=== PATIENT | female | born 1990 | race Caucasian/White ===

== ENCOUNTER 2017-10-14 09:22 | Emergency (ER) | payer MEDICAID ==
[2015-01-19 06:30] VITALS: BMI 19.7
[~2017-10-14 09:22] MED LIST: KLONOPIN1 MG PO; PERCOCET 10/3251 TA1 PO
== END 2017-10-14 11:30 | disposition home or self-care (01) ==
LOC: D.ER 09:22
DX: M25.522 Pain in left elbow (principal); Z87.81 Personal history of (healed) traumatic fracture

== ENCOUNTER 2019-11-23 07:25 | Outpatient (CLI) | payer MEDICAID ==
[2015-01-19 06:30] VITALS: BMI 19.7
[2019-11-23 08:34] LABS: BASOPHILS 0.2 % (0-2); EOSINOPHILS 0.4 % (0-7); HEMATOCRIT 33.6 % (36.0-48.0); HEMOGLOBIN 10.9 g/dL (12-16); IMMATURE GRANULOCYTES 0.5 % (0-5); LYMPHOCYTES 8.3 % (15-50); MCH 29.1 pg (26.0-34.0); MCHC 32.4 g/dL (31.0-37.0); MCV 89.8 fL (80.0-100.0); MEAN PLATELET VOLUME 9.9 fL (7.4-10.4); NEUTROPHILS 85.6 % (40-80); PLATELET COUNT 289 10x3/uL (130-400); RBC 3.74 10x6/uL (4.00-5.40); RDW 13.4 % (11.5-14.5); WBC 18.2 10x3/uL (4.8-10.8)
[2019-11-23 08:45] LABS: CALC OSMOLALITY 271 mosm/kg (275-300); CALCIUM 8.5 mg/dL (8.5-10.1); CARBON DIOXIDE 23.9 mmol/L (21.0-32.0); CHLORIDE - SERUM 104 mmol/L (98-107); CREATININE - SERUM 0.7 mg/dL (0.6-1.3); GLUCOSE 90 mg/dL (74-106); POTASSIUM - SERUM 4.4 mmol/L (3.5-5.1); SODIUM 136 mmol/L (136-145); UREA NITROGEN 12 mg/dL (7-18); eGFR NON AFRICAN AMERICAN > 90 mL/min (90-120)
[2019-11-23 08:53] LABS: ALBUMIN 2.9 g/dL (3.4-5.0); ALKALINE PHOSPHATASE 68 U/L (30-120); ALT (SGPT) 13 U/L (10-68); AMYLASE - SERUM 86 U/L (25-115); BILIRUBIN - TOTAL 0.21 mg/dL (0.2-1.3); LIPASE 107 U/L (73-393); PROTEIN - SERUM 6.5 g/dL (6.4-8.2)
[2019-11-23 10:04] LABS: BACTERIA MODERATE /hpf (NEGATIVE); BILIRUBIN NEGATIVE (NEGATIVE); GLUCOSE 50 mg/dL (NEGATIVE); KETONE NEGATIVE (NEGATIVE); NITRITE NEGATIVE (NEGATIVE); RED CELLS - URINE RARE /hpf (0-5); SPECIFIC GRAVITY 1.015 (1.005-1.020); UROBILINOGEN NORMAL (NORMAL); WHITE CELLS - URINE OCC /hpf (NEGATIVE)
== END 2019-11-23 11:15 | disposition home or self-care (01) ==
LOC: D.LDO 07:25
PROVIDERS: ATTEND Obstetrics & Gynecology
DX: O26.899 Other specified pregnancy related conditions, unspecified trimester (principal); Z3A.00 Weeks of gestation of pregnancy not specified

== ENCOUNTER → 2020-01-22 09:45 | Outpatient (CLI) | payer MEDICAID ==
[2015-01-19 06:30] VITALS: BMI 19.7
== END | disposition home or self-care (01) ==
LOC: D.LDO 09:45
PROVIDERS: ATTEND Student in an Organized Health Care Education/Training Program
DX: O36.8130 Decreased fetal movements, third trimester, not applicable or unspecified (principal); Z3A.36 36 weeks gestation of pregnancy

== ENCOUNTER 2020-02-17 20:42 | Inpatient (IN) | payer MEDICAID ==
[~2020-02-17] VITALS: Ht 152.4 cm; Wt 67.1 kg
[2020-02-17 21:22] VITALS: BP 117/79; Ht 152.4 cm; Wt 67.1 kg
[2020-02-17 21:40] LABS: HEMATOCRIT 39.5 % (36.0-48.0); HEMOGLOBIN 13.2 g/dL (12-16); MCH 29.8 pg (26.0-34.0); MCHC 33.4 g/dL (31.0-37.0); MCV 89.2 fL (80.0-100.0); MEAN PLATELET VOLUME 12.8 fL (7.4-10.4); RBC 4.43 10x6/uL (4.00-5.40); RDW 13.4 % (11.5-14.5); WBC 13.5 10x3/uL (4.8-10.8)
[2020-02-17 23:33] LABS: BILIRUBIN NEGATIVE (NEGATIVE); GLUCOSE NEGATIVE (NEGATIVE); KETONE NEGATIVE (NEGATIVE); NITRITE NEGATIVE (NEGATIVE); SPECIFIC GRAVITY 1.005 (1.005-1.020); UROBILINOGEN NORMAL (NORMAL)
[2020-02-17 23:35] LABS: BACTERIA FEW /hpf (NEGATIVE); EPITHELIAL CELLS 0-5 /hpf (0-5); RED CELLS - URINE 0-5 /hpf (0-5); WHITE CELLS - URINE 0-5 /hpf (NEGATIVE)
--- NOTE | 2020-02-18 19:23 | NUR ---
REPORT GIVEN TO VONDA BONILLA RN AT THIS TIME.
--- NOTE | 2020-02-18 19:30 | NUR ---
REPORT GIVEN BY VONDA MERCEDES RN
--- NOTE | 2020-02-18 20:30 | NUR ---
AMOS SAMANIEGO DID ASSESSMENT ON PT AND CHARTED IT IN [facility].
--- NOTE | 2020-02-18 22:53 | NUR ---
PT C/P CRAMPING PAIN. MOTRIN GIVEN PO PER DR. SHEPHERD
--- NOTE | 2020-02-19 | NUR ---
PT CRAMPING RATING PAIN A 7 WHICH WAS REPORTED BY THE NURSERY NURSE, AMOS BUTCHER. I WENT INTO THE ROOM TO CHECK ON HER AND SHE WAS WALKING TO THE BEDROOM. SHE WAS NOT IN PAIN AT THAT TIME. SHE TELLS ME THAT ITS JUST INTERMITTENT PAIN. DISCUSSED WITH DR. JOHNS.
--- NOTE | 2020-02-19 00:38 | NUR ---
PT TOOK A BENADRYL 25 MG TO HELP WITH SLEEP.
--- NOTE | 2020-02-19 02:00 | NUR ---
PT IS RESTING QUIETLY WITH HER EYES CLOSED. RERSPIRATIONS EVEN AND UNLABORED.
--- NOTE | 2020-02-19 04:00 | NUR ---
PT IS RESTING QUIETLY WITH HER EYES CLOSED.
[2020-02-19 06:10] LABS: RAPID PLASMA REAGIN Non Reactive (Non Reactive)
[2020-02-19 06:12] LABS: BASOPHILS 0.2 % (0-2); EOSINOPHILS 1.3 % (0-7); HEMATOCRIT 32.7 % (36.0-48.0); HEMOGLOBIN 10.6 g/dL (12-16); IMMATURE GRANULOCYTES 0.5 % (0-5); LYMPHOCYTES 20.8 % (15-50); MCH 29.1 pg (26.0-34.0); MCHC 32.4 g/dL (31.0-37.0); MCV 89.8 fL (80.0-100.0); MEAN PLATELET VOLUME 12.5 fL (7.4-10.4); NEUTROPHILS 67.2 % (40-80); RBC 3.64 10x6/uL (4.00-5.40); RDW 13.6 % (11.5-14.5); WBC 12.8 10x3/uL (4.8-10.8)
--- NOTE | 2020-02-19 06:12 | NUR ---
PT C/O CRAMPIMG MOTRIN 600 MG GIVEN PO
[2020-02-19 06:16] LABS: PLATELET COUNT 179 10x3/uL (130-400)
[2020-02-19 07:54] VITALS: BP 125/84
--- NOTE | 2020-02-19 07:54 | NUR ---
THIS RN TO ROOM FOR SHIFT ASSESSMENT. PT SITTING UP IN BED, AAOx3, RATES PAIN 3-4 AFTER MOTRIN ADMIN THIS MORNING. SHIFT ASSESSMENT COMPLETED, VSS, SEE FLOWSHEET FOR DOC. FF, ML, U/U. SMALL RUBRA LOCHIA, NO CLOTS. S/S TO REPORT REGARDING LOCHIA/CLOTS DISCUSSED WITH PT WELL IMPORTANCE OF EMPTYING BLADDER REGULARLY. PT STATES SHE JUST GOT UP TO BR AND CHANGED PAD, SO THERE ISN'T MUCH ON IT NOW, BUT SHE FEELS LIKE MAYBE IT WAS A LITTLE HEAVY LAST NIGHT. PT INSTRUCTED TO LEAVE PERIPAD IN PLACE AND THIS RN WILL REAVALUATE LOCHIA IN 1 HOUR. UNDERSTANDING VERBALIZED. PT DENIES NEEDS AT THIS TIME. SRUx2, CL IN REACH. SIG OTHER AT BEDSIDE. WILL CONT TO MONITOR.
--- NOTE | 2020-02-19 09:00 | NUR ---
THIS RN TO ROOM FOR PAD CHECK. 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 PT TO BED, SUPINE, FF, ML, U/1. SMALL RUBRA LOCHIA, NO CLOTS. PT REASSURED AND S/S TO REPORT REINFORCED. UNDERSTANDING VERBALIZED. SRUx2, CL IN REACH. WILL CONT TO MONITOR.
--- NOTE | 2020-02-19 10:48 | NUR ---
THIS RN TO ROOM FOR PT CHECK. PT UP TO BR, AMBULATES OUT TO ROOM. PT DENIES HEAVY BLEEDING OR ANY NEEDS. PT SMILING, TALKING WITH SIG OTHER. WILL CONT TO MONITOR.
--- NOTE | 2020-02-19 12:30 | NUR ---
PT SIG OTHER TO DESK STATING PT DIDN'T LIKE LUNCH. THIS RN TO ROOM, PT STATES SHE WANTS TO ORDER CHEESBURGER TRAY FOR HER AND SIG OTHER. DIETARY ORDER PLACED AND STAFF NOTIFIED. PT DENIES FURTHER NEEDS AT THIS TIME. SRUx2, CL IN REACH.
[2020-02-19 13:49] VITALS: BP 110/80
--- NOTE | 2020-02-19 13:55 | NUR ---
THIS RN TO ROOM FOR PT CHECK. PT C/O PAIN RATED 3-4/10, REQUESTING PAIN MEDICATION. MOTRIN ADMIN ORDERED, SEE EMAR FOR DOC. VSS, SEE FLOWSHEET FOR DOC. LEFT WRIST PIV REMOVED WITHOUT INCIDENT PER PT REQUEST, VSS, AND STABLE LABS. PRESSURE HELD AND BANDAID APPLIED. PT QUESTIONS WHEN SHE CAN GO HOME. 48 HOUR STAY REQUIREMENT FOR DISCUSSED PER POSITIVE GBS STATUS IN LABOR. DISCUSSED POSSIBILITY OF ROOMING IN WITH PT IF APPROVED BY DR JOHNS. PT STATES WILL THINK ABOUT IT AND LET US KNOW. SRUx2, CL IN REACH. WILL CONT TO MONITOR.
--- NOTE | 2020-02-19 16:35 | NUR ---
THIS RN TO ROOM FOR PT CHECK. PT LYING IN BED ON LEFT SIDE, AAOx3, HOLDING NEXT TO HER. PT DENIES ANY NEEDS, REPORTS PAIN IS BETTER AFTER MOTRIN ADMIN. SIG OTHER AWAKE ON BEDSIDE COUCH. SRUx2, CL IN REACH. WILL CONT TO MONITOR.
--- NOTE | 2020-02-19 17:33 | NUR ---
THIS RN TO ROOM FOR PT CHECK, PT SITTING UP IN BED TALKING WITH SIG OTHER. SIG OTHER STATES GUEST TRAY STILL HAS NOT BEEN DELIVERED. FANS STAFF ON UNIT, NOTIFIED TRAY NOT DELIVERED, STATES WILL CHECK INTO IT. PT DENIES FURTHER NEEDS. SRUx2, CL IN REACH.
--- NOTE | 2020-02-19 18:28 | NUR ---
THIS RN TO ROOM FOR PT CHECK. PT SITTING UP IN BED, AAOx3, LIGHTS DIM PER PT. PT DENIES PAIN OR ANY NEEDS. MED TIMES UPDATED ON BOARD FOR NEXT AVAIALABLE MOTRIN. SRUx2, CL IN REACH. IN [place], SIG OTHER ON BEDSIDE COUCH.
[2020-02-19 19:25] VITALS: BP 131/86
--- NOTE | 2020-02-19 19:25 | NUR ---
PT REC'D IN BED AT THIS TIME. FUNDUS FIRM AND MIDLINE WITH SMALL LOCHIA NOTE. PT STATES THAT PAIN IS A 2 AT THIS TIME. SIDERAIL UP FOR SAFETYL. CALL LIGHT IN PT REACH. Jerry LYON RN
--- NOTE | 2020-02-19 20:00 | NUR ---
PT TRANSFERRED TO [facility] UNIT. NO DISTRESS NOTED. Jerry LYON RN
--- NOTE | 2020-02-19 21:01 | NUR ---
FOB AT STORAGE WORKER, REPORTS PT WOULD LIKE HER MOTRIN, THIS RN TO ROOM, ADM MOTRIN PER MD ORDERS, SEE EMAR, PT DENIES FURTHER NEEDS
--- NOTE | 2020-02-19 22:00 | NUR ---
PT HOLDING INFANT, DENIES NEEDS OR PAIN AT THIS TIME, FOB AT BEDSIDE
--- NOTE | 2020-02-20 00:38 | NUR ---
PT HOLDING INFANT, DENIES NEEDS OR PAIN AT THIS TIME, FOB ASLEEP AT BEDSIDE
--- NOTE | 2020-02-20 02:23 | NUR ---
PT RESTING WITH EYES CLOSED, RESP QUIET, NO DISTRESS NOTED, LEFT UNDISTURBED AT THIS TIME, FOB ASLEEP AT BEDSIDE
--- NOTE | 2020-02-20 04:16 | NUR ---
PT RESTING WITH EYES CLOSED, RESP QUIET, NO DISTRESS NOTED, LEFT UNDISTURBED AT THIS TIME, FOB ASLEEP AT BEDSIDE
[2020-02-20 05:47] LABS: BASOPHILS 0.4 % (0-2); EOSINOPHILS 3.9 % (0-7); HEMATOCRIT 34.4 % (36.0-48.0); IMMATURE GRANULOCYTES 0.5 % (0-5); LYMPHOCYTES 35.5 % (15-50); MCH 29.1 pg (26.0-34.0); MEAN PLATELET VOLUME 12.7 fL (7.4-10.4); MONOCYTES 9.8 % (2-11); NEUTROPHILS 49.9 % (40-80); PLATELET COUNT 185 10x3/uL (130-400); RBC 3.78 10x6/uL (4.00-5.40); RDW 13.9 % (11.5-14.5)
--- NOTE | 2020-02-20 05:47 | NUR ---
PT RESTING WITH EYES CLOSED, AROUSES TO SOFT VERBAL STIMULATION, TO ROOM VIA OPEN CRIB CART PER THIS RN, BANDS CHECKED, INFANT TO FOB AT THIS TIME, ADM MOTRIN PER MD ORDERS, SEE EMAR, PT DENIES FURTHER NEEDS
[2020-02-20 06:04] LABS: WBC 7.7 10x3/uL (4.8-10.8)
--- NOTE | 2020-02-20 06:42 | NUR ---
PT UP IN ROOM, DENIES NEEDS OR PAIN AT THIS TIME, IN OPEN CRIB CART AND FOB AT BEDSIDE
[2020-02-20 07:57] VITALS: BP 114/84
--- NOTE | 2020-02-20 08:06 | NUR ---
ASSESSMENT DONE. SITTING UP IN BED. DENIES PAIN. SMALL LOCHIA NOTED ON PAD. FUNDUS UU/FIRM. PT STATES SHE HAS CHANGED PAD 4 TIMES THIS MORNING. STATES HAS HAD SOME SMALL CLOTS. WILL MONITOR. DENIES NEEDS.
--- NOTE | 2020-02-20 10:30 | NUR ---
t-dap vaccine info sheet given to ptto read- pt refuses vaccine.
--- NOTE | 2020-02-20 12:06 | NUR ---
PT'S SIG OTHER TO DESK, STATES "SHE WOULD LIKE HER IBUPROFEN". TO ROOM, SEE EMAR FOR ALL MEDS ADM BY THIS RN. MED ADM SCHEDULE EXPLAINED TO PT. PT DENIES ALL OTHER QUESTIONS AT THIS TIME. SRUP X2, CALL LIGHT AND PHONE WITHIN REACH.
[2020-02-20 13:08] VITALS: BP 116/78
--- NOTE | 2020-02-20 13:15 | NUR ---
STATES CRAMPING IS 0-1 ON SCALE OF 0-10 POST MOTRIN. REQUEST COLA- COLA GIVEN DENIES OTHER NEEDS. VS DONE.
--- NOTE | 2020-02-20 16:42 | NUR ---
DISCHARGE INST VERBAL AND WRITTEN GIVEN FOR PT TO READ. SEE ALSO SIGNED INST SHEETS. NO SCRIPTS TO BE GIVEN. APPOINTMENT TIME FOR NEXT OB VISIT PROVIDED. PT HEALTH SUMMARY PROVIDED.
--- NOTE | 2020-02-20 17:29 | NUR ---
PT SQUATED DOWN IN FLOOR. CO CRAMPING AND STATES SHE IS MORE COMFORTABLE IN THIS POSITION. RATES PAIN 4-5 WITH CRAMPING. PT STATES SHE WILL TAKE MOTRIN WHEN AVAILABLE. DENIES WANTING THIS NURSE TO CALL MD FOR STRONGER MEDICATION.
--- NOTE | 2020-02-20 17:33 | NUR ---
PT STANDING NOW AND STATES CRAMPING IS A LITTLE BETTER. PT ASKING WHEN WILL BE DISCHARGED. EXPLAINED THAT NURSERY NURSE WILL DISCHARGE INFANT MILENA.
--- NOTE | 2020-02-20 18:11 | NUR ---
AMBULATING ABOUT IN ROOM. SCANT LOCHIA NOTED ON PAD WHEN OBSERVED. DENIES CRAMPING AT THIS TIME.
--- NOTE | 2020-02-20 18:55 | NUR ---
NURSERY FINISHED WITH DISCHARGE. PT STATES SHE IS READY TO LEAVE. DISCHARGED HOME WITH INFANT AND SIG. OTHER. PT REQUEST TO AMBULATE OFF UNIT- ACCOMPANIED PT TO AUTO. STABLE
== END 2020-02-20 18:55 | disposition home or self-care (01) | DRG 807 ==
LOC: D.LD 20:42 → D.WS 02-19 19:45
PROVIDERS: ADMIT Student in an Organized Health Care Education/Training Program; ATTEND Student in an Organized Health Care Education/Training Program
PROC: 10E0XZZ Delivery of Products of Conception, External Approach (ICD-10-PCS; principal; 2020-02-18)
PROC: 3E033VJ Introduction of Other Hormone into Peripheral Vein, Percutaneous Approach (ICD-10-PCS; 2020-02-18)
PROC: 10907ZC Drainage of Amniotic Fluid, Therapeutic from Products of Conception, Via Natural or Artificial Opening (ICD-10-PCS; 2020-02-18)
DX: O99.824 Streptococcus B carrier state complicating childbirth (principal); Z37.0 Single live birth; Z3A.40 40 weeks gestation of pregnancy

== ENCOUNTER 2020-02-22 16:35 | Emergency (ER) | payer BC ==
[~2020-02-22] VITALS: Ht 160 cm; Wt 65.9 kg
[2020-02-22 16:44] VITALS: Ht 160 cm; Wt 65.9 kg
[2020-02-22 17:49] LABS: BASOPHILS 0.2 % (0-2); EOSINOPHILS 2.9 % (0-7); HEMATOCRIT 38.6 % (36.0-48.0); HEMOGLOBIN 12.5 g/dL (12-16); IMMATURE GRANULOCYTES 0.5 % (0-5); LYMPHOCYTES 19.9 % (15-50); MCH 29.3 pg (26.0-34.0); MCHC 32.4 g/dL (31.0-37.0); MCV 90.4 fL (80.0-100.0); MEAN PLATELET VOLUME 11.7 fL (7.4-10.4); MONOCYTES 6.6 % (2-11); NEUTROPHILS 69.9 % (40-80); RBC 4.27 10x6/uL (4.00-5.40); RDW 13.5 % (11.5-14.5); WBC 11.8 10x3/uL (4.8-10.8)
[2020-02-22 17:51] LABS: PLATELET COUNT 270 10x3/uL (130-400)
[2020-02-22 17:54] LABS: APTT 33.3 SECONDS (22.8-39.4); INR 0.85 (0.85-1.17); PROTIME 11.6 SECONDS (11.6-15.0)
[2020-02-22 17:55] LABS: CALC OSMOLALITY 281 mosm/kg (275-300); CALCIUM 9.3 mg/dL (8.5-10.1); CARBON DIOXIDE 29.4 mmol/L (21.0-32.0); CHLORIDE - SERUM 109 mmol/L (98-107); CREATININE - SERUM 0.8 mg/dL (0.6-1.3); D-DIMER-QUANTITATIVE 1.36 ug/mLFEU (0.20-0.54); GLUCOSE 90 mg/dL (74-106); POTASSIUM - SERUM 3.9 mmol/L (3.5-5.1); SODIUM 142 mmol/L (136-145); UREA NITROGEN 11 mg/dL (7-18); eGFR NON AFRICAN AMERICAN 90 mL/min (90-120)
[2020-02-22 18:13] LABS: ALBUMIN 3.1 g/dL (3.4-5.0); ALKALINE PHOSPHATASE 136 U/L (30-120); ALT (SGPT) 15 U/L (10-68); CKMB 1.1 U/L (0.0-3.6); CREATINE KINASE 51 UL (21-215); MAGNESIUM - SERUM 1.8 mg/dL (1.8-2.4); PROTEIN - SERUM 6.8 g/dL (6.4-8.2)
[2020-02-22 18:14] LABS: TROPONIN-I < 0.017 ng/mL (0.000-0.060)
[2020-02-22 20:19] LABS: BILIRUBIN NEGATIVE (NEGATIVE); GLUCOSE NEGATIVE (NEGATIVE); KETONE NEGATIVE (NEGATIVE); NITRITE NEGATIVE (NEGATIVE); RED CELLS - URINE 0-5 /hpf (0-5); UROBILINOGEN NORMAL (NORMAL); WHITE CELLS - URINE OCC /hpf (NEGATIVE)
[2020-02-22 22:40] VITALS: BP 128/79
== END 2020-02-22 22:40 | disposition home or self-care (01) ==
LOC: D.ER 16:35
PROVIDERS: Family Medicine
DX: R07.9 Chest pain, unspecified (principal); R06.00 Dyspnea, unspecified; R51 Headache; R60.9 Edema, unspecified; R79.89 Other specified abnormal findings of blood chemistry

== ENCOUNTER 2020-02-22 23:50 | Outpatient (CLI) | payer BC ==
[~2020-02-22] VITALS: Ht 160 cm; Wt 64.9 kg
[2020-02-23] VITALS (21 sets, daily range): BP systolic 110–152; BP diastolic 79–101; Ht 160 cm; Wt 64.9 kg
--- NOTE | 2020-02-23 01:00 | NUR ---
see notes under 'recovery" centricity [facility] pt resting quietly w/ mgso4 infusing via pump at 50 ml via r ac 20 guage, fan given for comfort, tripp to drainage, ns infusing at 50 ml/hr.. no needs voiced
--- NOTE | 2020-02-23 02:25 | NUR ---
to room, feels relief from headache, dtr's remain brisk, tripp continues to drainage, clear yellow urine
--- NOTE | 2020-02-23 04:52 | NUR ---
resting quietly, arouses easily to name called, w/o c/o pain or discomfort. no needs voiced at this tie
--- NOTE | 2020-02-23 05:55 | NUR ---
to bedside, pt c/o headache, continues to deny epigastric pain or visual disturbances, dtr's +2. marian. informed pt would call dr jacobson to make aware of pt complaint
--- NOTE | 2020-02-23 06:05 | NUR ---
call to dr jacobson, report given of blood pressures and pt continues to c/o head ache,, felt relief after fioricet but now getting worse again. orders rec'd to consult anesthesia to r/o spinal headache.
--- NOTE | 2020-02-23 06:15 | NUR ---
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
--- NOTE | 2020-02-23 07:23 | NUR ---
THIS RN TO ROOM FOR SHIFT ASSESSMENT. PT LYING IN BED TO RIGHT TILT, RATES PAIN WITH HEADACHE NOW 3/10, STATES FIORCET HELPED. PT DENIES THAT HEADACHE IS POSITIONAL, STATES "IT JUST COMES AND GOES." SHIFT ASSESSMENT COMPLETED, BP CUFF SIZE ADJUSTED TO PROPER LENGTH FOR PARAMETERS AND ARTERIAL ALIGNMENT, REASSESSED. DIASTOLIC BP NOTED TO BE SLIGHTLY ELEVATED. RIGHT LE NOTED TO HAVE 1+ TO 2+ PITTING EDEMA, LEFT LE NON-PITTING, GENERALIZED EDEMA. POSSIBLY DEPENDENT IN RLE DUE TO RIGHT SIDED POSITIONING. MAG SULFATE AND NS INFUSING ORDERED AT 50ML/H TO RIGHT PIV IN AC. BILATERAL BREASTS NOTED TO BE TIGHT AND ENGORGED, NO REDNESS NOTED, PT AFEBRILE. PT STATES SHE DOES NOT WANT TO PUMP OR BREASTFEED HER , STATES SHE WANTS MILK TO GO AWAY. COLD PACKS PROVIDED TO PT WITH ONE PER BREAST. LEFT BREAST NOTED TO BE MORE FIRM AND LEAKING BREASTMILK. BREASTPADS PLACED IN PT BRA BILAT. TRAN CATH DRAINING CLEAR YELLOW URINE TO BEDSIDE DRAINAGE, 350ML EMPTIED FROM UROMETER. PT REPORTS VERY LITTLE LOCHIA FLOW AT THIS POINT, DENIES NEEDING PAD CHANGED. FF, ML, U/3. PT DENIES NEEDS AT THIS TIME. POC DISCUSSED. MEDS AND POC WRITTEN ON WHITE BOARD. SRUx2, CL IN REACH SIG OTHER ON BEDSIDE COUCH.
[2020-02-23 07:51] LABS: HEMATOCRIT 44.3 % (36.0-48.0); HEMOGLOBIN 14.8 g/dL (12-16); MCH 29.7 pg (26.0-34.0); MCHC 33.4 g/dL (31.0-37.0); MEAN PLATELET VOLUME 11.2 fL (7.4-10.4); RBC 4.98 10x6/uL (4.00-5.40); RDW 13.5 % (11.5-14.5); WBC 11.7 10x3/uL (4.8-10.8)
--- NOTE | 2020-02-23 08:00 | NUR ---
SEE MAG FLOWSHEET FOR ALL HOURLY CHECKS
--- NOTE | 2020-02-23 08:30 | NUR ---
DR JOHNS PHONED WITH MAG LEVEL OF 7.0 AND PT REPORTS OF HEADACHE BEING BETTER AFTER FIORCET, RATES PAIN 3/10. RLE EDEMA DISCUSSED. REPORT ALSO GIVEN ON PT BREAST ENGORGEMENT AND THAT SHE DOES NOT WANT MILK TO COME IN. ORDER RECEIVED TO STOP MAG SULFATE NOW AND RECHECK MAG LEVEL AT 4 HOURS AFTER BEING TURNED OFF. COLD PACKS AND PAM BANDAGE WRAP ORDERED FOR BREAST ENGORGEMENT. WILL UPDATE PT ON POC.
--- NOTE | 2020-02-23 08:40 | NUR ---
MAGNESIUM SULFATE OFF
--- NOTE | 2020-02-23 10:30 | NUR ---
DR JOHNS TO ROOM FOR ROUNDING, NOTIFIES THIS RN SHE WILL ORDER FLEXERIL FOR NECK PAIN.
--- NOTE | 2020-02-23 11:50 | NUR ---
FLEXERIL 5MG PO ADMIN ORDERED, SEE EMAR FOR DOC. PT STATES HEADACHE IS GETTING A LITTLE WORSE, ASKS IF FLEXERIL MIGHT HELP WITH HEADACHE WELL NECK PAIN. POSSIBLE TENSION HEADACHE DISCUSSED, PT AGREES WILL WAIT AND SEE IF FLEXERIL HELPS WITH NECK AND HEAD.
--- NOTE | 2020-02-23 12:30 | NUR ---
LAB STAFF NOTIFIED OF NEED FOR MAG LEVEL TO BE DRAWN AT APPROX 1240 TO BE 4 HOURS POST MAG SHUT-OFF. STATES WILL SEND SOMEONE DOWN.
--- NOTE | 2020-02-23 14:15 | NUR ---
DR JOHNS PHONED WITH REPORT ON MAG LEVEL OF 4.3, PT BP'S IMPROVED, BUT PT C/O WORSENING HEADACHE EVEN AFTER FLEXERIL FOR NECK PAIN. ORDER RECEIVED TO RESTART MAGNESIUM SULFATE AT 1.5G/HR, PT MAY HAVE ONE TIME REPEAT DOSE OF FIORCET, AND MAY HAVE CLEAR LIQUID DIET. WILL PROCEED ORDERED.
--- NOTE | 2020-02-23 14:45 | NUR ---
PT UPDATED ON POC. MAG SULFATE RESTARTED WITH RATE CHANGE TO 37.5ML/H TO MAINTAIN 1.5G/HR DOSE ORDERED. FIORCET ADMIN ORDERED FOR SOUZA AT 1440. SPRITE AND POPSICLE GIVEN PER REQUEST FOR CLEAR LIQUID DIET. PT VERBALIZES UNDERSTANDING OF POC, QUESTIONS REGARDING WHEN PAM WRAP WILL BE APPLIED FOR BREAST ENGORGMENT. WILL ATTEMPT TO LOCATE WRAP AGAIN FROM PC TECH.
--- NOTE | 2020-02-23 15:00 | NUR ---
PAM BANDAGE WRAP APPLIED AROUND PT BREASTS FOR ENGORGMENT ORDERED. PT DENIES FURTHER NEEDS AT THIS TIME. SIG OTHER AT BEDSIDE. LIGHTS IN ROOM REMAIN DIMMED FOR LOW STIMULUS. SRUx2, CL IN REACH. WILL CONT TO MONITOR.
--- NOTE | 2020-02-23 16:00 | NUR ---
THIS RN TO ROOM FOR HOURLY CHECKS. PT RESTING IN BED, SUPINE, EYES CLOSED AND RESP EVEN AND UNLABORED. PT AWAKENS IV PUMP ALARMS. PT QUESTIONED ON HEADACHE AND NECK PAIN TO REEVALUATE MEDS. STATES HER HEAD STILL HURTS A LITTLE, RATES PAIN 4/10, AND STATES HER NECK STILL HURTS AND FEELS TENSE. THIS RN DISCUSSES MED TIMES ORDERED WITH PT, WARM PACK OFFERED FOR NECK. PT STATES SHE WILL WAIT AND SEE IF IT GOES AWAY.
--- NOTE | 2020-02-23 16:45 | NUR ---
PT SIG OTHER TO DESK STATING PT WANTS ANOTHER FLEXERIL TO HELP WITH HER NECK. WILL NOTIFY
--- NOTE | 2020-02-23 17:15 | NUR ---
DR JOHNS PHONED WITH PT C/O HEADACHE PERISTENT, RATED 4/10, AND THAT PT IS REQUESTING ANOTHER FLEXERIL NOW FOR NECK PAIN. ORDER RECIEVED TO ADMIN ANOTHER 5MG DOSE NOW AND RE-EVALUATE AFTER REPEAT DOSE.
--- NOTE | 2020-02-23 17:33 | NUR ---
PT ADMIN ANOTHER 5MG FLEXERIL ORDERED ONE TIME PO, SEE EMAR FOR DOC. PT AGREEABLE TO TRYING HEAT PACK FOR NECK. HEEL WARMER HEAT PACK FROM NURSERY PROVIDED TO PT AND PLACED TO NECK. PT DENIES FURTHER NEEDS, REPORTS WHAT SHE HAD FROM CLEAR LIQUID DINNER TRAY. SRUx2, CL IN REACH. SIG OTHER AT BEDSIDE.
--- NOTE | 2020-02-23 18:53 | NUR ---
REPORT TO AMOS FALCON.
[2020-02-23 19:24] LABS: HEMATOCRIT 42.9 % (36.0-48.0); HEMOGLOBIN 14.1 g/dL (12-16); MCH 29.5 pg (26.0-34.0); MCHC 32.9 g/dL (31.0-37.0); MCV 89.7 fL (80.0-100.0); MEAN PLATELET VOLUME 11.2 fL (7.4-10.4); RBC 4.78 10x6/uL (4.00-5.40); RDW 13.6 % (11.5-14.5); WBC 11.2 10x3/uL (4.8-10.8)
--- NOTE | 2020-02-23 19:41 | NUR ---
CALL TO DR JOHNS REPORT GIVEN REGARDING MAGESIUM LEVEL, ORDERS REC'D TO CONTINUE AT PRESENT RATE, ALSO REC'D ORDERS TO GIVE 5 MG FLEXIRIL NOW (OTHER HALF OF 1O MG GIVEN)
--- NOTE | 2020-02-23 22:10 | NUR ---
resting quietly in bed, supine position, arouses to name called, no needs voiced
--- NOTE | 2020-02-24 00:10 | NUR ---
at bedside, pt resting quietly, respirations even and unlabored w/o signs of distress. no needs voiced at this time
--- NOTE | 2020-02-24 02:16 | NUR ---
call from lab w/ mgso4 level of 6.6. nursing message reads to call md for levels above 7. no other range given in poc per dr jacobson. so will continue to monitor
--- NOTE | 2020-02-24 04:05 | NUR ---
at bedside, pt aroused to touch, vss, states is feeling relief sayig "this is the first time in days I haven't had a headache" no needs voiced at this time
[2020-02-24 07:22] VITALS: BP 110/80
--- NOTE | 2020-02-24 07:22 | NUR ---
RECEIVED PT IN SEMI-ROBLES'S POSITION IN BED. AWAKE. AAO X 3. VSS. HRRR WITHOUT AUDIBLE MURMUR. BBS CLEAR. BS X 4. ABDOMEN SOFT/NON-DISTENDED. PT DENIES VAGINAL DISCHARGE. DENIES H/A, VIS PROBLEMS, EPIG OR RUQ PAIN. 1+/1+ NON-PITTING EDEMA NOTED TO BLE. PIV SITE CLEAR TO RIGHT FOREARM. MAGNESIUM SULFATE DC'D. PT INSTRUCTED ON ORDERS RECEIVED. PT AND SO VERBALIZE UNDERSTANDING. TRAN TO GRAVITY DRAINING DARK, YELLOW URINE. PT DENIES PAIN. SR UP X 2. CALL LIGHT IN REACH. PT DENIES NEEDS.
--- NOTE | 2020-02-24 09:17 | NUR ---
PIV CONVERTED TO SALINE LOCK. FLUSHES EASILY WITH 10 ML NS. SITE CLEAR. TRAN DC'D WITH 120 ML OF DARK, YELLOW URINE NOTED IN CHAMBER. PT OOB AND AMB TO BR. VOIDS 300 ML OF CLEAR, YELLOW URINE. PERICARE DONE PER PT. SCANT AMT OF BROWN DISCHARGE NOTED ON TISSUE. PAD AND PANTIES ON. PT AMB BACK TO BED. PULSE OX 97%. REGULAR DIET SERVED. PT GRUPO WELL. STATES "I JUST FEEL WEAK".
--- NOTE | 2020-02-24 10:30 | NUR ---
DR JOHNS VISITS WITH PT. ORDERS RECEIVED.
--- NOTE | 2020-02-24 12:30 | NUR ---
PT IN SEMI-ROBLES'S POSITION. STATES VOIDED X 2 SINCE 1ST VOID. STATES HAVING SMALL AMT OF VAGINAL BLEEDING. PERIPAD WITH SMALL AMT OF RUBRA LOCHIA NOTED.
[2020-02-24 13:37] VITALS: BP 120/83
--- NOTE | 2020-02-24 13:37 | NUR ---
VSS. PT SITTING UP IN BED. DENIES PAIN OR NEEDS.
--- NOTE | 2020-02-24 15:00 | NUR ---
PT SITTING UP IN BED. AWAKE. VISITS WITH SO. DENIES C/O OR NEEDS. SL DC'D WITH CATHELON INTACT. PRESSURE BANDAGE TO SITE.
--- NOTE | 2020-02-24 16:25 | NUR ---
SO AT DESK. ASKS IF PT CAN EAT. NOTIFIED WILL NOTIFY DR JOHNS OF ULTRASOUND RESULTS AND THAT PT WANTS TO EAT.
--- NOTE | 2020-02-24 16:43 | NUR ---
MYLICON 80 MG GIVEN PO ORDERED. DR JOHNS ON UNIT. VIEWS ULTRASOUND REPORT. ORDERS RECEIVED TO DC HOME, F/U AT [facility] NEXT TUESDAY.
[2020-02-24] MEDS ORDERED: BUTALB-APAP-CA1 EACH PO (16:57)
--- NOTE | 2020-02-24 17:45 | NUR ---
DISCHARGE INSTRUCTIONS GIVEN TO PT. PT VERBALIZES UNDERSTANDING OF ALL INSTRUCTIONS. COPIES GIVEN TO PT. PT PREPARES FOR DISCHARGE.
--- NOTE | 2020-02-24 17:55 | NUR ---
PT READY FOR DISCHARGE. DISCHARGED IN STABLE CONDITION VIA WHEELCHAIR TO PRIVATE VEHICLE.
== END 2020-02-24 17:55 | disposition home or self-care (01) ==
LOC: D.LDO 23:50 → D.LD 23:52 → D.LDO 02-24 17:55
PROVIDERS: ATTEND Student in an Organized Health Care Education/Training Program
DX: O26.899 Other specified pregnancy related conditions, unspecified trimester (principal); Z3A.00 Weeks of gestation of pregnancy not specified; R10.32 Left lower quadrant pain